=== PATIENT | female | born 1985 ===

== ENCOUNTER 2018-07-23 05:33 | Inpatient (IN) | payer OTHER ==
--- NOTE | 2018-07-22 09:53 | NUR ---
[id number]
[~2018-07-23] VITALS: Ht 157.5 cm; Wt 72.6 kg
[2018-07-23] VITALS (13 sets, daily range): BP systolic 93–114; BP diastolic 45–76
[~2018-07-23 05:33] MED LIST: NKM
[2018-07-23] MEDS ORDERED: Lidocaine 1% MPF 10mg/ml 5ml ONE (06:34)
[2018-07-23] MEDS ORDERED: Propofol 200mg/20ml IV ONE (06:34)
[2018-07-23] MEDS ORDERED: fentaNYL 100 mcg/2 mL IV ONE (06:34)
[2018-07-23] MEDS ORDERED: Midazolam 2mg/2ml Inj ONE (06:34)
[2018-07-23] MEDS ORDERED: Succinylcholine 20mg/ml 10ml vial ONE (06:38)
[2018-07-23] MEDS ORDERED: Rocuronium Bromide 50mg/5ml Inj IV ONE (06:38)
[2018-07-23] MEDS ORDERED: Thrombin 5000 units TOPIC ONE ×2 (06:49→06:50)
[2018-07-23] MEDS ORDERED: Ropivacaine 5mg/ml Vial 30ml INJ ONE ×2 (06:49→06:51)
[2018-07-23] MEDS ORDERED: Bupivacaine w/Epi 0.5% 30ml Vial INJ ONE ×2 (06:50→06:51)
[2018-07-23] MEDS ORDERED: Bacitracin 50000 Units Vial ONE (06:50)
[2018-07-23] MEDS ORDERED: Neostigmine 1mg/ml 10ml Inj ONE (07:00)
[2018-07-23] MEDS ORDERED: Glycopyrrolate 0.2mg/ml 1ml Vial ONE ×2 (07:00→07:58)
[2018-07-23] MEDS ORDERED: Propofol 1,000mg/ 100ml btl IV ONE (07:00)
[2018-07-23] MEDS ORDERED: ceFAZolin sod 2 GM in D5W 110 ML IVPB ONE (07:00)
[2018-07-23] MEDS ORDERED: LR 1000ml ONE (07:00)
[2018-07-23] MEDS ORDERED: Ketorolac 30mg Inj ONE (07:00)
[2018-07-23] MEDS ORDERED: Sterile Water Irrig 1000ml IRRIG ONE (07:00)
[2018-07-23] MEDS ORDERED: NS Irrig 1000ml ONE (07:00)
[2018-07-23] MEDS ORDERED: TransDerm Scop 1.5mg/72HR Patch TDERMAL ONE (07:09)
--- NOTE | 2018-07-23 07:16 | Pre-Procedure Note/Attestation ---
Pre-Procedure Note/Attestation Complete Prior to Procedure Planned Procedure: left Procedure Narrative: Left L5S1 microdiscectomy Indications for Procedure Pre-Operative Diagnosis: L5s1 herniation Attestation I attest that I discussed the nature of the procedure; its benefits; risks and complications; and alternatives (and the risks and benefits of such alternatives ), prior to the procedure, with the patient (or the patient's legal benefits representative). I attest that, if there was a reasonable possibility of needing a blood transfusion, the patient (or the patient's legal benefits representative) was given the [facility] standardized written summary, pursuant to the Doron Jorge Blood Safety Act ([place] Health and Safety Code # 1645, as amended). I attest that I re-evaluated the patient just prior to the surgery and that there has been no change in the patient's H&P, except as documented below: Estuardo El MD Jul 23, 2018 07:16
--- NOTE | 2018-07-23 07:17 | Brief Operative Note ---
Immediate Post Operative Note Operative Note Chief Complaint: Low back pain and radic Pre-op Diagnosis: L5s1 herniation Procedure: Left L5S1 microdiscectomy Post-op Diagnosis: same as pre-op Findings: consistent w/pre-op dx studies Surgeon: Sienna Satellite Technician: Walter Anesthesiologist: ARLEN Anesthesia: general Specimen: none Complications: none Condition: stable Fluids: IVF Estimated Blood Loss: minimal Drains: none Implant(s) used?: No Estuardo El MD Jul 23, 2018 07:17
[2018-07-23] MEDS ORDERED: Metoclopramide 10mg/2ml Inj IVP PRN ×2 (07:30→08:15)
[2018-07-23] MEDS ORDERED: Morphine Sulfate 10mg/ml Inj ONE (07:56)
[2018-07-23] MEDS ORDERED: Sodium Chloride 10ml vial INJ ONE (07:59)
--- NOTE | 2018-07-23 08:05 | Anethesia Preoperative Eval ---
Anesthesia Pre-op PMH/ROS General Date of Evaluation: Jul 23, 2018 Time of Evaluation: 07:02 Anesthesiologist: Chip ASA Score: ASA 1 Mallampati Score Class I : Soft palate, uvula, fauces, pillars visible Class II: Soft palate, uvula, fauces visible Class III: Soft palate, base of uvula visible Class IV: Only hard plate visible Mallampati Classification: Class II Surgeon: Sienna Diagnosis: Lumbar radiculopqathy Surgical Procedure: L5-S1 laminotomy Anesthesia History: none Family History: no anesthesia problems Allergies: Coded Allergies: No Known Allergies (Unverified , 07/21/18) Patient NPO?: Yes NPO Date: Jul 22, 2018 NPO Time: 2100 Past Medical History Cardiovascular: Denies: HTN, CAD, PR, valve dz, arrhythmia, other Pulmonary: Denies: asthma, COPD, SABAS, other Gastrointestinal/Genitourinary: Reports: GERD - mild; Denies: CRI, ESRD, other Neurologic/Psychiatric: Denies: dementia, CVA, depression/anxiety, TIA, other Endocrine: Denies: DM, hypothyroidism, steroids, other HEENT: Denies: cataract (L), cataract (R), glaucoma, PEORIA (L), PEORIA (R), other Hematology/Immune: Denies: anemia, DVT, bleeding disorder, other Musculoskeletal/Integumentary: Denies: OA, RA, DJD, DDD, edema, other Other: other - overweight PMH Narrative: as above PSxH Narrative: Anesthesia Pre-op Phys. Exam Physician Exam Last Vital Signs Date Time Temp Pulse Resp B/P (MAP) Pulse Ox O2 Delivery O2 Flow Rate FiO2 07/23/18 06:41 97.0 67 20 114/68 (83) 100 07/23/18 06:11 Room Air Constitutional: NAD Neurologic: CN 2-12 intact Cardiovascular: RRR, no M/R/G Respiratory: CTA Gastrointestinal: S/NT/ND Airway Exam Mallampati Score: Class II MO: full Neck: flexible ROM: full Teeth: missing Dentures: no upper, no lower Anesthesia Pre-op A/P Labs see chart Urine Test Test 07/23/18 06:00 Urine HCG, Qualitative Negative (NEGATIVE) Studies Pre-op Studies: EKG - NSR Risk Assessment & Plan Assessment: ASA 2 Plan: Ga with ETT prone position neuromonitoring Status Change Before Surgery: No Pre-Antibiotics Drug: Ancef 1gr. Given Within 1 Hr of Incision: Yes Time Given: 07:32 Walt Saunders MD Jul 23, 2018 08:05
[2018-07-23] MEDS ORDERED: LR 1000ml 1,000 ML IVLG SCH (08:06)
[2018-07-23] MEDS ORDERED: Meperidine 50mg/ml Inj(FOR RIGORS ONLY) IV PRN (08:15)
[2018-07-23] MEDS ORDERED: Ketorolac 30mg Inj IV PRN (08:15)
[2018-07-23] MEDS ORDERED: Midazolam 2mg/2ml Inj IVP PRN (08:15)
[2018-07-23] MEDS ORDERED: TransDerm Scop 1.5mg/72HR Patch TDERMAL SCH (08:15)
[2018-07-23] MEDS ORDERED: DiphenhydrAMINE 50mg/ml Inj IVP PRN (08:15)
[2018-07-23] MEDS ORDERED: Acetaminophen (Non formulary) 100 ML IV ONE (08:15)
--- NOTE | 2018-07-23 09:15 | Immediate Post-Op Evaluation ---
Immediate Post-Op Evalulation Immediate Post-Op Evalulation Procedure: L5-S1 laminotomy with decompression Date of Evaluation: Jul 23, 2018 Time of Evaluation: 09:14 IV Fluids: 1000 Blood Products: none Estimated Blood Loss: >50 Urinary Output: none Blood Pressure Systolic: 97 Blood Pressure Diastolic: 64 Pulse Rate: 72 Respiratory Rate: 20 O2 Sat by Pulse Oximetry: 99 Temperature (Fahrenheit): 97.6 Pain Score (1-10): 1 Nausea: No Vomiting: No Complications none Patient Status: reacts, patent, extubated, none Hydration Status: adequate Walt Saunders MD Jul 23, 2018 09:15
--- NOTE | 2018-07-23 10:30 | NUR ---
NURSE NOTES: Received pt from TUCKER VASQUEZ. Pt is alert and orient x4. pt has NC 2LMP. No SOB or acute respiratory distress noted. pt has iv access LH is running well. pt has intact dressing on the back above buttock. ice pack is on it. SCD is in place and on. all needs attended, bed is locked and is in the lowest position. call light within easy reach. will continue to monitor.
--- NOTE | 2018-07-23 11:00 | NUR ---
NURSE NOTES: pt given clear liquid diet as order and tolerate well. will continue to monitor.
[2018-07-23] MEDS ORDERED: HYDROcodone/Acetamin 7.5/325 tab ORAL PRN ×2 (12:00)
[2018-07-23] MEDS ORDERED: Naloxone 0.4mg/ml Inj IVP PRN (12:00)
[2018-07-23] MEDS ORDERED: HYDROcodone/Acetamin 5/325 tab ORAL PRN (12:00)
[2018-07-23] MEDS ORDERED: Morphine Sulfate 4mg/ml Inj (IV USE ONLY) IV PRN ×3 (12:00)
[2018-07-23] MEDS ORDERED: HYDROmorphone 1mg/ml Carpuject IVP PRN (12:00)
[2018-07-23] MEDS ORDERED: Milk of Magnesia 30ml Ud ORAL PRN (12:00)
[2018-07-23] MEDS: Dexamethasone 4mg/ml vial IVP SCH ×2 (12:13→17:10)
[2018-07-23] MEDS ORDERED: NS w/KCl 20mEq 1000ml 1,000 ML IV SCH (12:30)
[2018-07-23] MEDS ORDERED: Chloraseptic Spray 20mL Bottle ORAL PRN (12:30)
--- NOTE | 2018-07-23 12:40 | Diagnostic Imaging Report ---
Indication: Intraoperative imaging Comparison: None Findings: Localization image followed by 6 fluoroscopic crosstable lateral views showing instrumentation posterior to L5-S1. IMPRESSION: Intraoperative imaging
--- NOTE | 2018-07-23 14:30 | 48 Hour Post Anesthesia Eval ---
Post Anesthesia Evaluation Procedure: L5-S1 laminotomy with decompression Date of Evaluation: Jul 23, 2018 Time of Evaluation: 14:29 Blood Pressure Systolic: 105 0: 64 Pulse Rate: 86 Respiratory Rate: 22 Temperature (Fahrenheit): 97.6 O2 Sat by Pulse Oximetry: 98 Airway: patent Nausea: No Vomiting: No Pain Intensity: 2 Hydration Status: adequate Cardiopulmonary Status: stable Mental Status/LOC: patient returned to baseline Follow-up Care/Observations: n/a Post-Anesthesia Complications: none Follow-up care needed: ready to discharge Walt Saunders MD Jul 23, 2018 14:30
--- NOTE | 2018-07-23 15:18 | NUR ---
NURSE NOTES: Pt request to go home. Dr bernstein and blake and anesthesiologist are aware and cleared her to D/C. All orderers noted and [id number] out. will continue to monitor.
[2018-07-23] MEDS ORDERED: NORCO 10-325 T1 EACH ORAL (15:29)
[2018-07-23] MEDS ORDERED: HYDROcodone/Acetamin 10/325 tab ORAL PRN (15:30)
[2018-07-23] MEDS ORDERED: ceFAZolin sod 1 GM in D5W 55 ML IV SCH (15:30)
[2018-07-23] MEDS ORDERED: Docusate 100mg cap ORAL SCH (18:00)
--- NOTE | 2018-07-23 18:37 | NUR ---
NURSE NOTES: pt is stable, V/S stable, all discharge assessments and instructions and Allison flat regarding bed transfer log roll method given to pt and emphasis not to twist , bend or lifting and she verbally confirmed to understand all. pt consumed 75% of dinner and tolerate well. no sign of nausea or vomiting noted. RN helped pt to walk and tolerate well. all belonging are with pt and she signed belongings paper. dressing is intact. D/C iv access. pt left hospital with accompany of her brother and friend.
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
--- NOTE | 2018-07-26 14:48 | Discharge Summary ---
Discharge Summary Hospital Course Date of Admission Jul 23, 2018 at 05:33 Date of Discharge Jul 23, 2018 at 18:56 Admitting Diagnosis L5-S1 herniation with back pain and radiculopathy Reason for Hospitalization: elective surgery HPI Gladys Ferguson is a 32 year old female who was admitted on Jul at 05:33 for Herniated Nucleus Pulposus, Pain,RadiculopathyL5-S1. Patient failed nonoperative management. Patient was admitted for elective surgery. Procedures s/p 07/23/[address] El 1. Left-sided L5-S1 microdiscectomy. 2. L5-S1 hemilaminotomy, foraminotomy, and medial facetectomy. 3. L5-S1 neural foraminotomy through a transpedicular intraforaminal approach. 4. Use of intraoperative microscope. 5. Supervision and interpretation of intraoperative fluoroscopy. 6. Supervision and interpretation of somatosensory-evoked potential and free running EMG monitoring. Hospital Course Status post surgery course of recovery uneventful initially IV fluids s/p perioperative antibiotics neurovascular status closely monitored, stable incision clean dry and intact pain management addressed ; Pain controlled hemodynamically stable ambulated with PT fall precautions maintained; safe for ambulation tolerated diet , IV fluids discontinued GI prophylaxis provided antiemetics were on board as needed voided freely bowel regimen instituted patient was stable for discharge discharge instructions provided follow up with surgeon as outpatient FINAL DIAGNOSES Intractable back pain. Intractable leg pain. Worsening radiculopathy. Weakness. Herniated nucleus pulposus, L5-S1 herniation. Neural foraminal stenosis, L5-S1. s/p Left L5- S1 microdiscectomy Discharge Medications Continued Medications: Hydrocodone Bit/Acetaminophen 10-325* (Winston 10-325*) 1 Each Tablet 1 TAB ORAL Q6H PRN for For Pain, #60 TAB 0 Refills (This prescription has been renewed) PRN PAIN Discharge Condition Upon Discharge: stable Discharge Disposition Patient was discharged to Home () Discharge Instructions Discharge Instructions Special Instructions I have been assigned to complete a D/C Summary on this account. I was not involved in the patient management Vandana Wills NP Jul 26, 2018 14:48
== END 2018-07-23 18:56 | disposition home or self-care (01) | DRG 520 ==
LOC: SDSOVERFLO 05:33 → 3E 10:32
PROC: 01NB0ZZ Release Lumbar Nerve, Open Approach (ICD-10-PCS; principal; 2018-07-23 07:00)
PROC: 0SB40ZZ Excision of Lumbosacral Disc, Open Approach (ICD-10-PCS; principal; 2018-07-23 07:00)
DX: M51.17 Intervertebral disc disorders with radiculopathy, lumbosacral region (principal); M48.07 Spinal stenosis, lumbosacral region; V89.2XXS Person injured in unspecified motor-vehicle accident, traffic, sequela; Z23 Encounter for immunization
CPT/HCPCS: 36415; 72020; 76000; 81025; 86850; 86900; 86901; 87081; 94003; 94150; J2250; J2405; J2710; J2765